=== PATIENT | female | born 1975 | race Caucasian/White ===

== ENCOUNTER → 2020-12-04 | Outpatient (CLI) | payer BC, OTHER ==
[~2020-12-04] MED LIST: ALPR0.5T7 PO; CEPH-368 PO; CITA20TA9; CITA40TA12 PO; ESCI20TA10 PO; FLUT1DIS3 INH; GABA300C10 PO; GRAPEFRUIT EXTRACT; HYDR1TAB53 PO; IBUP-1623 PO; L.AC1CAP6 PO; LEVO100C2; LEVO75TA PO; METH-640 PO; OREGANO OIL; TEMA15CA PO; VITAMIN B12 PO; VITAMIN D3 PO
[2020-12-04 16:18] LABS: BASOPHILS % (AUTO) 1 % (0-1); EOSINOPHILS % (AUTO) 1 % (1-7); LYMPHOCYTES % (AUTO) 18 % (22-44); MEAN CORPUSCULAR HEMOGLOBIN 33.6 pg (27.0-34.8); MEAN CORPUSCULAR HGB CONC 34.2 g/dL (32.4-35.8); MEAN PLATELET VOLUME 8.3 fL (7.4-10.4); MONOCYTES % (AUTO) 6 % (2-9); NEUTROPHILS % (AUTO) 74 % (42-75); PLATELET COUNT 293 x10^3/uL (130-400); RED BLOOD COUNT 4.33 x10^6/uL (3.82-5.3)
[2020-12-04 16:22] LABS: MICROSCOPIC NOT IND
[2020-12-04 16:22] LABS: MD NO
== END | disposition home or self-care (01) ==
LOC: STAR 15:10
PROVIDERS: ATTEND Obstetrics & Gynecology
DX: Z01.812 Encounter for preprocedural laboratory examination (principal); N39.3 Stress incontinence (female) (male); Z20.822 Contact with and (suspected) exposure to COVID-19
CPT/HCPCS: 36415; 81003; 84702; 85025; U0003

== ENCOUNTER 2020-12-08 07:02 | Day surgery (SDC) | payer BC, OTHER ==
[~2020-12-08] VITALS: Ht 170.2 cm; Wt 80.6 kg
[2020-12-08 07:20] VITALS: BP 154/89
[2020-12-08] MEDS ORDERED: LACTATED RINGERS 1,000 ML IV SCH (07:30)
[2020-12-08] MEDS ORDERED: LIDOCAINE-MPF 1%, 2ML INFIL ONE (07:30)
[2020-12-08] MEDS ORDERED: CHLORHEXIDINE 15 ML UDC PO ONE (07:30)
[2020-12-08] MEDS ORDERED: GABAPENTIN 300 MG CAPSULE PO ONE (07:30)
[2020-12-08] MEDS ORDERED: ACETAMINOPHEN 500 MG TABLET PO ONE (07:30)
[2020-12-08] MEDS ORDERED: MIDAZOLAM 1 MG/ML, 2ML ONE (07:38)
[2020-12-08 07:39] LABS: HCG UR SG 1.023 (1.003-1.030)
[2020-12-08] MEDS ORDERED: HYDROmorphone 1 MG/ML, 1ML INJ ONE (07:48)
[2020-12-08] MEDS ORDERED: FENTANYL PF 100 MCG/2ML ONE (07:49)
[2020-12-08] MEDS ORDERED: BUPIVACAINE/PF 0.25% ONE (08:19)
[2020-12-08] MEDS ORDERED: NEOMY/POLYMYXIN B GU IRR. 1 ML ONE (08:19)
[2020-12-08] MEDS ORDERED: HALOPERIDOL 5 MG/ML IV PRN (08:30)
[2020-12-08] MEDS ORDERED: ONDANSETRON 2MG/ML, 2ML IVPush PRN (08:30)
[2020-12-08] MEDS ORDERED: KETOROLAC 30 MG/1 ML IV PRN (08:30)
[2020-12-08] MEDS ORDERED: OXYcodone 5 MG/5 ML ORAL.SOL UDC PO PRN (08:30)
[2020-12-08] MEDS ORDERED: FENTANYL PF 100 MCG/2ML IV PRN (08:30)
[2020-12-08] MEDS ORDERED: EPHEDRINE 50 MG/ML, 1ML IVPush PRN (08:30)
[2020-12-08] MEDS ORDERED: HYDROmorphone 1 MG/ML, 1ML INJ IVPush PRN (08:30)
[2020-12-08] MEDS ORDERED: METOCLOPRAMIDE 5 MG/ML, 2ML IVPush PRN (08:30)
[2020-12-08] MEDS ORDERED: hydrALAzine 20 MG/ML, 1ML IV PRN (08:30)
[2020-12-08] MEDS ORDERED: METOPROLOL 1 MG/ML, 5ML IV PRN (08:30)
[2020-12-08] MEDS ORDERED: DIPHENHYDRAMINE 50 MG/ML, 1ML IVPush PRN (08:30)
[2020-12-08] MEDS ORDERED: MEPERIDINE/PF 25MG/0.5ML IVPush PRN (08:30)
[2020-12-08] MEDS ORDERED: PROMETHAZINE 25 MG/ML, 1ML IVPush PRN (08:30)
[2020-12-08] MEDS ORDERED: LABETALOL 5MG/ML, 20ML IV PRN (08:30)
[2020-12-08] MEDS ORDERED: DIAZEPAM 5 MG/ML, 2ML IVPush PRN (08:30)
[2020-12-08] MEDS ORDERED: PHENYLEPHRINE 10 MG/ML ONE (10:39)
[2020-12-08] MEDS ORDERED: DEXAMETHASONE 4 MG/ML, 1ML ONE (10:39)
[2020-12-08] MEDS ORDERED: ONDANSETRON 2MG/ML, 2ML ONE (10:39)
[2020-12-08] MEDS ORDERED: PROPOFOL 10 MG/ML, 20ML ONE (10:39)
[2020-12-08] MEDS ORDERED: CEFAZOLIN 1,000 MG ONE (10:39)
== END 2020-12-08 12:45 | disposition home or self-care (01) ==
LOC: OUT 07:02
PROVIDERS: ATTEND Obstetrics & Gynecology
DX: N39.3 Stress incontinence (female) (male) (principal); N76.4 Abscess of vulva; J45.909 Unspecified asthma, uncomplicated; E03.9 Hypothyroidism, unspecified; F41.9 Anxiety disorder, unspecified; Z79.890 Hormone replacement therapy; Z79.899 Other long term (current) drug therapy; Z98.1 Arthrodesis status; Z98.890 Other specified postprocedural states
CPT/HCPCS: 57288; 81025; C1771; J1170; J2250; J3010; J7120; J0690; J1100; J2405; J2704; J2370